=== PATIENT | male | born 1980 | race Caucasian/White ===

== ENCOUNTER 2016-12-10 19:49 | Emergency (ER) | payer OTHER ==
[~2016-12-10] VITALS: Ht 172.7 cm; Wt 95.7 kg
[~2016-12-10 19:49] MED LIST: BACTRIM,SEPT1 TABLET PO; KEFLEX500 MG PO; ZYVOX600 MG PO
[2016-12-10] MEDS ORDERED: MOTRIN800 MG PO (22:04)
[2016-12-10] MEDS ORDERED: NORCO 10/3251 TABLET PO (22:04)
[2016-12-10 22:19] VITALS: BP 138/92
== END 2016-12-10 22:24 | disposition home or self-care (01) ==
LOC: EME 19:49 → RME 19:49
DX: H16.133 Photokeratitis, bilateral (principal); W89.0XXA Exposure to welding light (arc), initial encounter; Y92.69 Other specified industrial and construction area as the place of occurrence of the external cause; Y99.0 Civilian activity done for income or pay; F17.200 Nicotine dependence, unspecified, uncomplicated
CPT/HCPCS: 99281; 99284; J1885; J3010